=== PATIENT | female | born 2000 | race Caucasian/White ===

== ENCOUNTER 2024-11-13 15:50 | Outpatient (CLI) | payer SELFPAY ==
--- OUTSIDE RECORDS SUMMARY | 2024-11-14 10:19 | XMS_ITS | Clinical Summary ---
Author Organization [facility] General Surgery [place] [address] Address [address] [place] [address] Phone Care Team Providers Care Wood Room Hand Name Role Phone Tea Eldridge [facility] Property Technician Primary Ca re Provider Allergies No known active allergies Medications sertraline (ZOLOFT) 100 mg Oral Tablet Take 100 mg by mouth nightly. 3 Active omeprazole (PRILOSEC OTC) 20 mg Oral Tablet, Delayed Release (E.C.) Take 1 Tablet by mouth daily. 30 Tablet 3 Active Additional Information Patient taking differently:20 mg OralNIGHTLY, Reason: Advised by Physician, Reported on 04/09/2023 oxyCODONE (ROXICODONE) 5 mg Oral Tablet Take 1 Tablet by mouth every 4 hours as needed for Major Surgery/Trauma (G89.18). 15 Tablet 3 Active Active Problems Problem Noted Date Diagnosed Date RUQ pain 04/02/2023 Surgical History Surgery Date Site/Laterality Comments CHOLECYSTECTOMY, LAPAROSCOPIC 04/17/2023 Abdomen/N/A LAPAROSCOPIC CHOLECYSTECTOMY; Surgeon: Malina De Jesus MD; Location: [facility]; Service: General Medical History Medical History Date Comments Heartburn Family History Medical History Relation Name Comments Anesth Problems Neg Hx Social History Tobacco Use Types Packs/Day Years Used Date Smoking Tobacco: Every Day Smokeless Tobacco: Never Comments:Vape Comments No Sex and Gender Information Value Date Recorded Sex Assigned at Not on file Legal Sex Female 12:01 AM EDT Gender Identity Not on file Sexual Orientation Not on file Obstetrics History Last Filed Vital Signs Vital Sign Reading Time Taken Comments Blood Pressure 108/72 04/17/2023 9:30 AM EST Pulse 64 04/17/2023 9:30 AM EST Temperature 36.3 C (97.4 F) 04/17/2023 9:30 AM EST Respiratory Rate 20 04/17/2023 9:30 AM EST Oxygen Saturation 97% 04/17/2023 9:30 AM EST Inhaled Oxygen Concentration - - Weight 108.9 kg (240 lb) 04/17/2023 6:54 AM EST Height 172.7 cm (5' 8 ) 04/17/2023 6:54 AM EST Body Mass Index 36.49 04/17/2023 6:54 AM EST Plan of Treatment Health Maintenance Due Date Last Done Comments Annual Wellness Exam 12/19/2003 Meningococcal B Vaccine (1 o f 2 - Standard) 2016 Pneumococcal Vaccine 0-49 (1 of 2 - PCV) 12/19/2019 Cervical Cancer Screening 2021 DTaP/TDaP/Td (7 - Td or Tdap) 2021, 01/06/2005, 03/24/2002, Additional history exists Pap Smear 2021 COVID-19 Vaccine (3 2023-2 5 season) 2024 05/16/2021, 04/21/2021 Influenza Vaccine (Season Ended) 2025 02/22/20 Hepatitis B Vaccine Completed 12/20/2001, 03/05/2001, 2000 HPV Completed 04/04/2021, 05/22, 03/05/2012 Insurance [address] [address] Care Teams Wood Room Hand Relationship Specialty Start Date End Date Tea Eldridge Primary [facility] Property Technician [address] [facility] [place] [id number] PCP - General Obstetrics & Gynecology-Gynecology 04/17/23
--- OUTSIDE RECORDS SUMMARY | 2024-11-14 10:20 | XMS_ITS | Data Portability ---
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 Not Available acyclovir 5 % topical ointment APPLY TO THE AFFECTED AREA(S) BY TOPICAL ROUTE EVERY THREE (3) HOURS SIX (6) TIMES PER DAY 06/14 completed Not Available Not Available Not Available fluoxetin e 10 mg capsule Take 1 capsule every day by oral route for 30 days. 04/04 completed Not Available Not Available Not Available buspirone 7.5 mg tablet TAKE ONE (1) TABLET TWICE A DAY BY ORAL ROUTE FOR 30 DAYS. 09/05 completed patient reports made anxiety worse Not Available Not Available Not Available omeprazol e 20 mg capsule,d elayed release TAKE ONE (1) CAPSULE EVERY DAY BY ORAL ROUTE FOR 60 DAYS, FOR GERD. 02/21 completed Not Available Not Available Not Available hydroxyzi ne HCl 25 mg tablet TAKE ONE (1) TABLET EVERY DAY BY ORAL ROUTE NEEDED FOR 30 DAYS. 02/07 completed Not Available Not Available Not Available Pepcid 20 mg tablet Take 1 tablet twice a day by oral route as needed for 30 days. 04/05 completed Not Available Not Available Not Available sertralin e 50 mg tablet TAKE ONE (1) TABLET EVERY DAY BY ORAL ROUTE FOR 90 DAYS. 08/04 completed Not Available Not Available Not Available medroxypr ogesteron e 150 mg/mL intramusc ular suspensio n INJECT ONE (1) ML INTRAMUS CULARLY EVERY THREE (3) MONTHS 02/21 completed Not Available Not Available Not Available oxycodone 5 mg tablet TAKE ONE (1) TABLET BY MOUTH EVERY FOUR (4) HOURS NEEDED FOR MAJOR SURGERY/ TRAUMA (G89.18) . 05/07 completed Not Available Not Available Not Available azithromy juni 500 mg tablet TAKE ONE (1) TABLET EVERY DAY BY ORAL ROUTE DIRECTED FOR TWO (2) DAYS. 10/26 completed Not Available Not Available Not Available Graysonselle (28) 0.3 mg-30 mcg tablet Take 1 tablet every day by oral route for 28 days. 08/04 completed Not Available Not Available Not Available Xulane 150 mcg-35 mcg/24 hr transderm al patch Apply 1 patch every week by transder mal route as directed . 04/25 completed Not Available Not Available Not Available Vitals Date Recorded Body height Body mass index (BMI) Body weight Systolic And Diastolic Provider Name and Address Organization Details Last Updated DateTime 05/29/2024 173.99 cm 37.8 kg/m2 522544.71 g 120/76 mm[Hg] Susan Agee [place] - [facility] 05/29/2024 15:44:04 Date Recorded Body height Body mass index (BMI) Body weight Systolic And Diastolic Provider Name and Address Organization Details Last Updated DateTime 06/26/2024 173.99 cm 37.8 kg/m2 278380.28 g 106/64 mm[Hg] Susan Agee [place] - [facility] 06/26/2024 16:43:47 Date Recorded Body height Body mass index (BMI) Body weight Body temperature Heart rate Oxygen saturation Oxygen saturation in Arterial blood by Pulse oximetry Respiratory rate Systolic And Diastolic Provider Name and Address Organization Details Last Updated DateTime 173.99 cm 38.7 kg/m2 526787. 83 g 98 [degF] 92 /min 98 % 98 % 18 /min 110/74 mm[Hg] Ashley Wade [place] - [facility] 17:28:00 Date Recorded Body height Body mass index (BMI) Body weight Systolic And Diastolic Provider Name and Address Organization Details Last Updated DateTime 02/22/2024 173.99 cm 35.8 kg/m2 115318.58 g 104/70 mm[Hg] Susan Agee [facility] 02/22/2024 11:42:57 Date Recorded Body height Body mass index (BMI) Body weight Body temperature Heart rate Oxygen saturation Oxygen saturation in Arterial blood by Pulse oximetry Respiratory rate Systolic And Diastolic Provider Name and Address Organization Details Last Updated DateTime 4 173.99 cm 35.6 kg/m2 305929. 49 g 97.6 [degF] 73 /min 97 % 97 % 18 /min 118/78 mm[Hg] Ashley Wade [place] - [facility] 4 11:35:47 Social History Question Answer Notes LastModified by Organizat ion Details LastModified Time Tobacco Smoking Status Never Smoker Mara bruce [place] - [facility] 07/31/2018 13:21:11 Do You Have An Advance Directive? No Information not available 09/01/2019 How Many Years Have You Consumed Alcohol? 1 [email or web address] Information not available 04/04/2021 Are You Blind Or Do You Have Difficulty Seeing? No [email or web address] Information not available 09/14/2021 Is Blood Transfusion Acceptable In An Emergency? Yes [email or web address] Information not available 09/01/2019 What Is Your Level Of Caffeine Consumption? Moderate [email or web address] Information not available 09/01/2019 How Much Tobacco Do You Chew? None Information not available 09/01/2019 In The 14 Days Before Symptom Onset, Have You Had Close Contact With A Laboratory-confir med COVID-19 While That Case Was Ill? No [email or web address] Information not available 09/14/2021 In The 14 Days Before Symptom Onset, Have You Had Close Contact With A Person Who Is Under Investigation For COVID-19 While That Person Was Ill? No [email or web address] Information not available 09/14/2021 Have You Been To An Area Known To Be High Risk For COVID-19? No [email or web address] Information not available 09/14/2021 Are You Deaf Or Do You Have Serious Difficulty Hearing? No [email or web address] Information not available 09/01/2019 What Type Of Diet Are You Following? REGULAR [email or web address] Information not available 07/31/2018 Which Illicit Or Recreational Drugs Have You Used? Declines [email or web address] Information not available 09/01/2019 Have You Processed Blood Or Body Fluids From An Ebola Virus Disease Patient Without Appropriate PPE? No [email or web address] Information not available 09/14/2021 Do You Reside In Or Have You Traveled To An Area Where Ebola Virus Transmission Is Active? No [email or web address] Information not available 09/14/2021 What Is The Highest Grade Or Level Of School You Have Completed Or The Highest Degree You Have Received? [id number] [email or web address] Information not available 09/01/2019 How Many Days Of Moderate To Strenuous Exercise, Like A Brisk Walk, Did You Do In The Last 7 Days? 0 Information not available 09/01/2019 On Those Days That You Engage In Moderate To Strenuous Exercise, How Many Minutes, On Average, Do You Exercise? 0 [email or web address] Information not available 09/01/2019 Have There Been Any Changes To Your Family Or Social Situation? No [email or web address] Information no t available 09/14/2021 How Hard Is It For You To Pay For The Very Basics Like Food, Housing, Medical Care, And Heating? [id number] [email or web address] Information not available 09/14/2021 What Is The Fluoride Status Of Your Home? Fluoridated [email or web address] Information not available 09/14/2021 Live Alone Or With Others? With Others [email or web address] Information not available 09/14/2021 Last Menstrual Period? 03/10/2024 [email or web address] Information not available 05/29/2024 Last Menstrual Period 12/02/2018 [email or web address] Information not available 12/25/2018 What Was The Date Of Your Most Recent Tobacco Screening? 08/04/2024 Information not available 08/04/2024 How Many Children Do You Have? 0 [email or web address] Information not available 09/01/2019 Performs Monthly Self-breast Exam? Yes [email or web address] Information no t available 09/14/2021 Do You Use Protection During Sex? Always [email or web address] Information not available 09/01/2019 Do You Use Protection Against STDs? Always [email or web address] Information not available 04/28/2022 What Is Your Relationship Status? Single [email or web address] Information not available 09/01/2019 Seat Belts Used Routinely Yes [email or web address] Information not available 09/14/2021 Are You Sexually Active? Yes [email or web address] Information not available 09/01/2019 Do You Have Smoke And Carbon Monoxide Detectors In Your Home? Yes [email or web address] Information not available 04/04/2021 Are You Passively Exposed To Smoke? No [email or web address] Information no t available 04/04/2021 How Much Tobacco Do You Smoke? No [email or web address] Information not available 09/01/2019 General Stress Level Low [email or web address] Information not available 09/14/2021 Do You Use Sunscreen Routinely? Yes [email or web address] Information not available 09/01/2019 Has Tobacco Cessation Counseling Been Provided? Yes [email or web address] Information not available 02/22/2024 On What Date Was Tobacco Cessation Counseling Provided? 08/04/2024 Information not available 08/04/2024 Do You Have Difficulty Walking Or Climbing Stairs? No [email or web address] Information not available 09/14/2021 What Contraceptive Method Was Reported At Start Of This Visit? Male Condom [email or web address] Information not available 04/28/2022 What Contraceptive Method Was Reported At End Of This Visit? Male Condom [email or web address] Information not available 04/28/2022 Do You Want To Talk About Contraception Or Prevention During Your Visit Today? No - I Am Already Using Contraception [email or web address] Information not available 04/28/2022 How Many Years Have You Used E-cigarettes Or Vape? 2 [email or web address] Information not available 09/14/2021 Do You Have Any Future Plans To Get ? No, I Don't Want To Become [email or web address] Information not available 04/28/2022 Which Type Of Protection Is Used? Condoms [email or web address] Information not available 04/28/2022 Sex: Female Functional Status Question Answer Note LastModified by Organizat ion Details LastModified Time How many times per week do you consume alcohol? <1 time per week [email or web address] Information not available 04/28/2022 Do you or have you ever used smokeless tobacco? Never used smokeless tobacco [email or web address] Information not available 09/01/2019 Are you currently employed? Yes [email or web address] Information not available 09/01/2019 Do you have transportation difficulties? No [email or web address] Information not available 09/14/2021 Are you able to care for yourself? Yes [email or web address] Information not available 04/04/2021 Do you have difficulty dressing or bathing? No [email or web address] Information not available 09/14/2021 Do you or have you ever used e-cigarettes or vape? Current user of electronic cigarettes vape [email or web address] Information not available 03/02/2022 What is your exercise level? Occasional [email or web address] Information not available 09/01/2019 Do you use any illicit or recreational drugs? No [email or web address] Information not available 04/28/2022 Do you or have you ever used any other forms of tobacco or nicotine? Yes [email or web address] Information not available 09/14/2021 What is your level of alcohol consumption? Occasional [email or web address] Information not available 09/01/2019 What is your status? Not [email or web address] Information no t available 04/28/2022 Are you able to walk? YESWOREST [email or web address] Information not available 09/14/2021 Do you have difficulty doing errands alone? 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 [id number] [email or web address] Information not available 09/01/2019 Do you have difficulty concentrating, remembering or making decisions? No [email or web address] Information no t available 09/14/2021 Family History Relationship Description Onset Age of this Age Resolved Age Notes LastModified by Organization Details LastModified Time Father No current problems or disability [email or web address] Not available 07/26 09:41:44 Mother Disorder of thyroid gland [email or web address] Not available 2018 15:03:34 Mother Obesity [email or web address] Not available 07/09/2020 15:29:47 Mother Carcinoma of cervix [email or web address] Not available 2023 09:41:44 Brother Obesity [email or web address] Not availabl e 07/09/2020 15:29:47 Medical History Condition Response Anxiety Disorder Y Acid Reflux (GERD) Y Depression Y Gynecological History Statement/Question Response Abnormal Pap N Flow Moderate Date of LMP 05/21/2024 On BCP's at Conception? N Post Menopausal Bleeding N STIs/STDs N HPV Vaccine Y Duration of Flow (days) 5 Current Control Method Condoms Age at Menarche 12 Last Annual Exam/Provider 02/22/24 w/DT Sexually Active? Y Date of Last Cervical Culture 03/20/2024 Menses Monthly N Date of Last Pap Smear 04/28/2022 Sexual Problems? N LMP Definite Desired Control Method Condoms Hormone Replacement Therapy N Obstetrics History GPAL:G 0 P 0 0 0 0 Type Value Full Term 0 Living 0 Total 0 Immunizations Vaccine Type Date Status Note Provider Nam e and Address Organization Details Recorded Time MMR 4 completed Susan Agee [place], [place] - [facility] 05/29/2024 15:21:10 MMR 4 completed [place] [facility] 05/29/2024 15:21:10 Tdap 4 completed [place] [facility] 05/29/2024 15:21:10 Hep B, adult 4 completed [place] [facility] 05/29/2024 15:21:10 Hep B, adult 4 completed [place] [facility] 05/29/2024 15:21:10 HPV9 1 completed Parker Martinez [place] [facility] 04/04/2021 13:44:05 Influenza, split virus, quadrivalent, preservative 9 completed Not Available [facility] 06/14/2023 09:38:28 DTaP, unspecified formulation 1 completed Cristina Hill, [employer] [address], [place], [address], [place] [facility] 04/05/2020 16:25:13 DTaP, unspecified formulation 2 completed Cristina Hill, [employer] [address], [place], [address], [place] [facility] 04/05/2020 16:25:24 DTaP, unspecified formulation 2 completed Cristina Hill, [employer] [address], [place], [address], [place] [facility] 04/05/2020 16:25:36 DTaP, unspecified formulation 2 completed Cristina Hill, [employer] [address], [place], [address], [place] [facility] 04/05/2020 16:25:46 DTaP, unspecified formulation 5 completed Cristina Hill, [employer] [address], [place], [address], [place] [facility] 04/05/2020 16:25:57 Tdap 2 completed Cristina Hill, [employer] [address], [place], [address], [place] [facility] 04/05/2020 16:26:12 IPV 1 completed Cristina Khalil Manimich, [employer] [address], [place], [address], [place] [facility] 04/05/2020 16:26:27 IPV 2 completed Cristina HigginbothamGood Singletonmich, [employer] [address], [place], [address], [place] [facility] 04/05/2020 16:26:37 IPV 2 completed Cristina HigginbothamGood Singletonmich, [employer] [address], [place], [address], [place] [facility] 04/05/2020 16:26:47 IPV 5 completed Cristina Pieter Singletonmich, [employer] [address], [place], [address], [place] [facility] 04/05/2020 16:26:56 Hib-Hep B 1 completed Cristina Stapleton Remi Singletonmich, [employer] [address], [place], [address], [place] [facility] 04/05/2020 16:27:30 Hib-Hep B 2 completed Cristina Hill, [employer] [address], [place], [address], [place] [facility] 04/05/2020 16:27:41 Hib (PRP-OMP) 2 completed Cristina Pieter Singletonmich, [employer] [address], [place], [address], [place] [facility] 04/05/2020 16:27:57 Hep A, ped/adol, 2 dose 8 completed Susan bruce [place] [facility] 04/28/2022 15:05:01 Hep A, ped/adol, 2 dose 9 completed Cristina Hill, [employer] [address], [place], [address], [place] [facility] 04/05/2020 16:28:50 Hep B, adolescent or pediatric 1 completed Cristina Hill, [employer] [address], [place], [address], [place] [facility] 04/05/2020 16:29:08 MMR 2 completed Cristina Hill, [employer] [address], [place], [address], [place] [facility] 04/05/2020 16:29:22 MMR 5 completed Cristina Hill, [employer] [address], [place], [address], [place] [facility] 04/05/2020 16:29:31 varicella 2 completed Cristina Hill, [employer] [address], [place], [address], [place] [facility] 04/05/2020 16:29:45 varicella 2 completed Cristina Hill, [employer] [address], [place], [address], [place] [facility] 04/05/2020 16:29:54 meningococcal MCV4P 2 completed Cristina Hill, [employer] [address], [place], [address], [place] [facility] 04/05/2020 16:30:14 Meningococcal MCV4O 8 completed Susan [place] [facility] 04/28/2022 15:05:01 HPV, quadrivalent 2 completed Cristina Hill, [employer] [address], [place], [address], [place] [facility] 04/05/2020 16:30:49 HPV, quadrivalent 3 completed Cristina Hill, [employer] [address], [place], [address], [place] [facility] 04/05/2020 16:30:59 COVID-19, mRNA, LNP-S, PF, 30 mcg/0.3 mL dose 1 completed Susan [place] [facility] 04/28/2022 15:05:02 COVID-19, mRNA, LNP-S, PF, 30 mcg/0.3 mL dose 1 completed [facility] 04/28/2022 15:05:02 influenza, unspecified formulation 2 completed Not Available [facility] 06/14/2023 09:38:28 influenza, unspecified formulation 4 completed JUSTYNA Key [facility] 02/22/2024 11:39:31 Past Encounters Encounter ID Performer Location Encounter Start Date Encounter Closed Date Diagnosis/Indication Diagnosis SNOMED-CT Code Diagnosis ICD10 Code Diagnosis Note [id number] Lora Bess[address] [place] [address] 07/31/2018 12:50:00 07/31/2018 13:48:08 Abdominal pain 92853983 R10.9 Gastroesop hageal reflux disease 657995578 K21.9 Anxiety 63624837 F41.9 [id number] Cristina Hill[address] [address] 12/19/2018 11:13:54 12/19/2018 11:36:20 Dysuria 34151104 R30.0 Urinary tr act infectious disease 25952670 N39.0 Childhood obesity 277673 003 E66.8 [id number] Cristina Hill [address] [address] 12/25/2018 11:03:56 12/25/2018 11:59:02 Contraception education 967590382 Z30.09 Initiation of transdermal contraception done 1867293153 45068 Z30.018 Childhood obesity 613475 003 E66.8 Anxiety 63175469 F41.9 stable [id number] Keyanna Tavarez[address] [place] [address] 04/25/2019 14:45:45 04/25/2019 16:05:00 Contraception care management 372406076 Z30.9 Venereal d isease screening 019853994 Z11.3 [id number] Cristina Hill[address] [place] [address] 06/13/2019 11:24:39 06/13/2019 12:37:17 Exposure to Influenzavirus 694869837 Z20.828 Nasal congestion 2858413 0 R09.81 Childhood obesity 500968 003 E66.8 [id number] Keyanna Tavarez [address] [place] [address] 07/11/2019 09:27:36 07/11/2019 10:54:46 Anxiety 66929374 F41.9 Depressive disorder 3548 9007 F32.9 Body mass index 30+ - obesity 219027836 Z68.33 [id number] Keyanna Tavarez [address] [place] [address] 07/17/2019 09:27:16 07/17/2019 10:00:49 Contraception care management 250899414 Z30.9 [id number] CHERI Duarte [employer] [address] [place] [address] JUSTYNA Monge [address] 09/01/2019 14:17:36 09/01/2019 16:17:22 Bacterial vaginosis 971132884 N76.0 Screening for Chlamydia trachomatis 493570237 Z11.8 [id number] Keyanna Tavarez [address] [place] [address] 10/16/2019 09:28:46 10/16/2019 10:09:06 Uses depot contraception 374222146 Z30.42 [id number] Keyanna Tavarez [address] [place] [address] 12/16/2019 11:33:54 12/16/2019 12:58:49 Anxiety 59998411 F41.9 Depressive disorder 3548 9007 F32.9 Gastroesop hageal reflux disease without esophagitis 972226222 K21.9 [id number] Keyanna Tavarez [address] [place] [address] 01/20/2020 11:44:45 01/20/2020 13:11:06 Depot contraceptive status 878201961 Z92.0 [id number] Karly Christian [employer] [place] [employer] [address] [place] [id number] 01/23/2020 09:53:14 01/23/2020 10:58:02 Vaginal discharge 903818282 N89.8 Bacterial vaginosis 4197 93492 N76.0 Inflammati on of cervix 61886907 N72 [id number] Cristina Hill [address] [place] [address] 04/05/2020 14:36:10 04/05/2020 15:25:29 Uses depot contraception 578209850 Z30.42 Childhood obesity 825336 003 E66.8 [id number] Cristina Hill [address] [place] [place] [address] 07/09/2020 08:18:15 07/09/2020 08:47:18 Contraception care management 151384041 Z30.9 [id number] Cristina Hill [address] [place] [place] [address] 10/01/2020 09:49:56 10/01/2020 10:22:06 Dysuria 78892168 R30.0 Urinary tr act infectious disease 36477640 N39.0 Childhood obesity 013924 003 E66.8 Contracept ion care management 781687868 Z30.9 Uses depot contraception 388635936 Z30.42 [id number] Cristina Hill [address] [place] [place] [address] 12/27/2020 12:47:54 12/27/2020 13:49:30 Viral screening 640654041 Z11.52 COVID-19 546046452 U07.1 [id number] Cristina L. Khalil Saluga[address] [place] [address] 01/07/2021 11:42:59 01/07/2021 12:10:12 Uses depot contraception 033583040 Z30.42 Childhood obesity 623964 003 E66.8 [id number] Cristina Hill[address] [place] [address] 04/04/2021 12:56:58 04/04/2021 14:07:04 Contraception care management 074040551 Z30.9 Depression screening 171 530787 Z13.31 Adult heal th examination 731926946 Z00.00 General ex amination of patient 253828280 Z00.00 Exercises education, guidance, and counseling 923287856 Z71.82 Dietary ma nagement surveillance 213998523 Z71.3 Screening for Chlamydia trachomatis 219450120 Z11.8 Safety education 2395914 04 Z71.9 Childhood obesity 863604 003 E66.8 Macromastia 327610382 N6 2 Mild depression 91540019 3 F32.0 will monitor at this time [id number] Cristina Hill[address] [place] [address] 06/22/2021 13:01:52 06/22/2021 13:15:54 Contraception care management 206724456 Z30.9 Childhood obesity 432110 003 E66.8 Uses depot contraception 443432501 Z30.42 [id number] Cristina Hill [address] [address] 09/14/2021 10:19:52 09/14/2021 11:00:47 Uses depot contraception 008067863 Z30.42 Vaginal discharge 959265 006 N89.8 Childhood obesity 811210 003 E66.8 [id number] Cristina Hill [address] [place] [address] 09/29/2021 08:50:27 09/29/2021 09:11:35 Candidiasis of mouth 72262286 B37.0 [id number] Cristina Hill [address] [place] [address] 10/06/2021 13:56:07 10/06/2021 14:21:53 Lesion of oral mucosa 9568890295 012834 K13.70 Herpes labialis 1765995 B00.1 Childhood obesity 414408 003 E66.8 [id number] Karly Christian APRN [place] [employer] [address] [place] [address] [place] [address] 10/26/2021 10:48:20 10/26/2021 11:38:47 Vaginal odor 917075274 N89.8 Venereal d isease screening 965271752 Z11.3 [id number] Cristina Hill [address] [place] [address] 4 11/29/2021 14:54:16 11/29/2021 16:05:49 Contraception care management 624651065 Z30.9 [id number] CHERI Liriano [employer] [address] [place] [address] [place] [address] 03/02/2022 13:20:58 03/02/2022 14:05:16 Abnormal uterine bleeding 0779315329 9100 N93.9 [id number] CHERI Liriano [employer] [address] [place] [address] [place] [address] 04/28/2022 14:57:58 04/28/2022 15:41:26 Routine gynecologic examination done 8200947707 9101 Z01.419 Depression screening 171 720547 Z13.89 Hypertensi on screening 882197002 Z13.6 Screening for malignant neoplasm of cervix 623679738 Z12.4 Diet education 64963955 Z71.3 Encourage healthy eating/dec reased fats, sugars, fried foods Counseling 937731709 Z71 .82 Encouraged regular exercise 30-40min/d ay 4-5 days/wk Contracept ion care management 617639053 Z30.9 prefers condoms only Examinatio n of blood pressure 817254881 Z01.30 Body mass index 30+ - obesity 672549522 Z68.36 [id number] Kayla Gilliam [place] [address] [place] [address] 10/02/2022 10:49:32 10/02/2022 11:30:50 Body mass index 30+ - obesity 589789315 Z68.36 Obesity 039181693 E66.9 Vaginal discharge 918737 006 N89.8 Pruritus of vagina 91890 003 L29.3 Increased frequency of urination 381675548 R35.0 Leukocytes in urine 2757 00316 R82.[id number] [place] [place] [address] 12/07/2022 09:41:20 12/07/2022 10:49:10 Fatigue 84993900 R53.83 Mixed anxi ety and depressive disorder 172919508 F41.8 Start sertraline 50mg. Discussed potential side effects.GA D-7 score of 15. Will continue to monitorPHQ -9 score of 9. Will continue to monitor. [id number] Kayla Gilliam [address] [place] [place] [address] 01/11/2023 13:56:51 01/11/2023 15:01:38 Mixed anxiety and depressive disorder 782083803 F41.8 Start hydroxyzin e 25mg. Discussed potential side effects.GA D-7 score of 16. Will continue to monitorPHQ -9 score of 13. Will continue to monitor. [id number] CHERI Liriano [employer] [address] [place] [address] [place] Monge [address] 02/07/2023 13:25:01 02/07/2023 13:52:00 Venereal disease screening 352488074 Z11.3 [id number] Kayla Gilliam [address] [place] [address] 02/08/2023 14:45:21 02/08/2023 15:16:24 Mixed anxiety and depressive disorder 843567560 F41.8 Increase sertraline to 100mg/dayG AD-7 score of 7. Will continue to monitorPHQ -9 score of 5. Will continue to monitor. [id number] Kayla Gilliam [address] [place] [address] 03/02/2023 11:02:43 03/02/2023 11:30:16 Gallstone 766522672 K80.[address] from [facility] ED visit on 02/26/23Dis cussed reducing dietary intake of fried/grea sy foods Toothache 47582500 K08.8 9 Advised the use or Tylenol or ibuprofen as needed for discomfort .Advised patient to f/u with dentist at earliest convenienc e. Patient verbalized understand ing. [id number] Kayla Gilliam [address] [place] [address] 03/15/2023 14:57:25 03/15/2023 16:06:35 Mixed anxiety and depressive disorder 786115924 F41.8 NEL-7 score of 21.PHQ-9 score of 15. [id number] Kayla Gilliam [address] [address] 05/07/2023 13:17:09 05/07/2023 13:44:33 Mixed anxiety and depressive disorder 933623544 F41.8 NEL-7 score of 6PHQ-9 score of 4 Herpes labialis 8583982 B00.1 [id number] Kayla Gilliam [address] [place] [address] 06/14/2023 09:37:10 06/14/2023 10:24:23 Contraception care management 065133913 Z30.9 [id number] Kayla Gilliam [address] [place] [address] 07/27/2023 09:41:31 07/27/2023 10:09:12 Body mass index 30+ - obesity 270325224 Z68.36 Obesity 826469962 E66.9 Herpes labialis 5934908 B00.1 [id number] Kayla Gilliam [address] [place] [address] 08/17/2023 14:38:53 08/17/2023 15:27:25 Mixed anxiety and depressive disorder 482798798 F41.8 NEL-7 score of 5PHQ-9 score of 4 [id number] Kayla Gilliam [address] [place] [address] 09/06/2023 09:49:19 09/06/2023 10:57:40 Initiation of depot contraception done 9823450955 02940 Z30.013 Contracept ion care management 551187577 Z30.9 [id number] Kayla Gilliam [address] [place] [address] 11/29/2023 14:47:04 11/29/2023 15:38:00 Endocrine/metabolic screening 705364946 Z13.228 Uses depot contraception 894408111 Z30.42 [id number] Kayla Gilliam [address] 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 Dysuria 27058706 R30.0 Advised to increase water intake and decrease caffeine intake [id number] CHERI Liriano [employer] [address] [place] [address] [place] [address] 02/22/2024 11:31:33 02/22/2024 12:08:05 Routine gynecologic examination done 7320879374 9101 Z01.419 Depression screening 171 478398 Z13.31 PHQ-9 completed today. Diet education 84345179 Z71.3 Encourage healthy eating/dec reased fats, sugars, fried foods Counseling 873184541 Z71 .82 Exercise counseljannie diaz. Patient encouraged to exercise 30 minutes 5 days a week. Examinatio n of blood pressure 253049072 Z01.30 Hypertensi on screening 554795055 Z13.6 Venereal d isease screening 628964121 Z11.3 Body mass index 30+ - obesity 542532293 Z68.35 Obesity 260141636 E66.9 Mixed anxi ety and depressive disorder 688353877 F41.8 Contracept ion care management 165960852 Z30.9 prefers condoms only [id number] Kayla Gilliam [place] [address] [place] [address] 03/20/2024 11:24:47 03/20/2024 12:55:40 Mixed anxiety and depressive disorder 231835913 F41.8 Venereal d isease screening 679890512 Z11.3 Will call with lab results when available. Irregular periods 376432 07 N92.6 Vaginal discharge 810534 006 N89.8 Leukocytes in urine 2757 76115 R82.79 [id number] Karly Christian APRN [place] [employer] [address] [place] [address] [place] [address] 05/29/2024 15:18:27 05/29/2024 16:16:32 Irregular intermenstrual bleeding 64666688 N92.1 Body mass index 30+ - obesity 893765275 Z68.37 Obesity 818171756 E66.9 [id number] CHERI Liriano [employer] [address] [place] [address] [place] [address] 06/26/2024 15:56:25 06/26/2024 16:59:04 Irregular intermenstrual bleeding 15913191 N92.1 Folliculitis 84176051 L7 3.9 [id number] Kayla Gilliam [place] [address] [place] [address] 08/04/2024 17:23:00 08/04/2024 17:47:04 Excessive thirst 76183950 R63.1 Body mass index 30+ - obesity 576422969 Z68.38 Education was provided on healthy nutrition, including a diet rich in fruits and vegetables , minimizing simple carbohydra patel, salt, and saturated fats. Encouraged regular cardiovasc ular exercise such as walking at least 30 minutes daily, 5 times per week. Obesity 955681118 E66.9 Endocrine/ metabolic screening 080163646 Z13.228 Health Concerns Section Related Observation LastModified by Organization Detai ls LastModified Time None Recorded Concern Status LastModified by Organization Details LastModified Time None Recorded Advance Directives Directive N: Payers Insurance Date Sequence Insurance Name Policy Number Policy Arzate Covered Member ID Arzate Member ID Guarantor Name 06/26/2024 1 *SELF PAY* Mio Garcia 06/09/2024 1 [facility] [id number] Candido Garcia [id number] Estefany Garcia Notes Date Note Type Note Provider Name and Address Organization Details Recorded Time 02/22/2024 text/html Annual - MOBReported bypatient.History:L ast annual exam: 04/28/22; no gynecologic complaints Current Contraception: control not practiced;New sexual partner Preventive measures:Encourage self breast examination; Encourage regular exercise; Encourage no tobacco use; Encourage regular mammograms starting age 40Notes:Patience rto for AWE. She is doing well and denies epic application coordinator concerns. Karly Gino, BLIND SLAT STAPLING MACHINE OPERATOR [address], [place], [address], [place] - [facility] 02/22/2024 13:05:41 03/20/2024 text/html Patient presents for depression and anxiety f/u. Patient reports compliance with medication regimen. Patient reports depression and anxiety symptoms are well controlled at this time.Patient also reports she was diagnosed with chlamydia approx. 1 month ago. Patient reports she completed doxycycline as prescribed. Requesting to be re-tested for chlamydia today. Patient does endorse intermittent vaginal discharge.Patient also reports irregular menstrual periods since discontinuing Depo-Provera injections. Patient does report spotting x 1 week in the past month.Denies SI/HI, chest pain, SOA, fever, edema, dysuria, and n/v/d. Kayla Gilliam, BL[employer] STAPLING MACHINE OPERATOR [address], [place], [address], [place] - [facility] 03/20/2024 12:36:33 05/29/2024 text/html Patience present s today for irregular spotting since stopping Depo.Estefany has used depo and bcps intermittently. I explained how this can affect cycle regularity. UPT is negative.She has experienced 15# weight gain over the past 2 months. She feels it could be r/t starting her new job, and being in a very good, comfortable relationship. Discussed ways to modify nutrition to encourage weight loss.She agrees to short-term hormonal contraception to help regulate bleeding pattern. Karly Gino, BLIND SL[employer] STAPLING MACHINE OPERATOR [address], [place], [address], [place] - [facility] 05/29/2024 21:42:18 06/26/2024 text/html Patience present s today to discuss results of ultrasound.Estefany is also complaining of 2 new bumps vaginally and requesting them to be checked.US reviewed-unremarkab le. Images read and interpreted by radiologist. She is reassured. Karlybello Christian, BLIND SL[employer] STAPLING MACHINE OPERATOR [address], [place], [address], [place] - [facility] 06/26/2024 22:52:53 08/04/2024 text/html Patient presents to discuss weight loss. Patient reports she has decreased calorie intake with no benefit. Does endorse polydipsia. Denies chest pain, SOA, fever, polydipsia, dizziness, syncope, and n/v/d. Kayla Gilliam, BLIND SLAT STAPLING MACHINE OPERATOR [address], [place], [address], [place] - [facility] 08/04/2024 17:49:23 OBGyn Episode No OBEpisode recorded.
== END 2024-11-13 23:59 | disposition home or self-care (01) ==
LOC: LAB.DROPOF 11-14 10:12
PROVIDERS: PCP Nurse Practitioner Family; Visit Provider Nurse Practitioner Family
DX: R30.0 Dysuria (principal)
CPT/HCPCS: 87086

== ENCOUNTER 2024-12-23 09:45 | Outpatient (CLI) | payer SELFPAY ==
--- NOTE | 2024-12-23 09:47 | XR_ITS ---
FINAL REPORT CLINICAL HISTORY: left ankle pain COMPARISON: None FINDINGS: LEFT ANKLE Three views demonstrate no acute fracture or dislocation. There is a moderate plantar spur. The ankle mortise is intact. The visualized joint spaces are normally aligned. The soft tissues are unremarkable. IMPRESSION: No acute bony abnormality. Reviewed, Interpreted and Dictated by Michael Lima MD Transcribed by Phyllis Elizabeth Authenticated and [facility]
--- OUTSIDE RECORDS SUMMARY | 2024-12-23 09:47 | XMS_ITS | Clinical Summary ---
Author Organization [facility] General Surgery [place] [address] [address] [place] [address] Phone Care Team Providers Care Cream Hauler Name Role Phone Tea Eldridge [facility] Rn Teacher Primary Ca re Provider Allergies No known [...] CHOLECYSTECTOMY; Surgeon: Malina De Jesus MD; Location: [facility] MAIN OR; Service: General Medical History Medical [...] Last Done Comments Annual Wellness Exam 12/19/2003 Pneumococcal Vaccine 0-49 (1 of 2 - PCV) 12/19/2019 Cervical Cancer Screening 2021 DTaP/TDaP/Td (7 - Td or Tdap) 2021 12/19/2011, 01/06/2005, 03/24/2002, Additional history exists Pap Smear 2021 COVID-19 Vaccine ( season) 2024 05/16/2021, 04/21/2021 Influenza Vaccine (#1) 2025 02/21/2019 Hepatitis B Vaccine Completed 12/20/2001, 03/05/2001, 2000 HPV Completed 04/04/2021, 05/22, 03/05/2012 Meningococcal B Vaccine Aged Out No l onger eligible based on patient's age to complete this topic Insurance [address] [address] Care Teams Cream Hauler Relationship Specialty Start Date End Date Tea Eldridge [facility] Rn Teacher [address] [facility] [place] [address] PCP - General Obstetrics & Gynecology-Gynecology 04/17/23
== END 2024-12-23 23:59 | disposition home or self-care (01) ==
LOC: RAD 09:45
PROVIDERS: PCP Nurse Practitioner Family; Visit Provider Physician Assistant
DX: M25.572 Pain in left ankle and joints of left foot (principal); M77.32 Calcaneal spur, left foot
CPT/HCPCS: 73610

== ENCOUNTER 2025-02-05 08:18 | Outpatient (CLI) | payer SELFPAY ==
--- OUTSIDE RECORDS SUMMARY | 2025-02-06 13:15 | XMS_ITS | Clinical Summary ---
Author Organization [facility] General Surgery [place] [address] [address] [place] [address] Phone Care Team Providers Care Associate Director Regulatory Affairs Name Role Phone Tea Eldridge [facility] Hardboard Factory Worker Primary Ca re Provider Allergies No known [...] CHOLECYSTECTOMY; Surgeon: Malina De Jesus MD; Location: [facility] MAIN OR; Service: General Medical History Medical [...] Pap Smear 2021 COVID-19 Vaccine ( season) 2025 05/16/2021, 04/21/2021 Influenza Vaccine (#1) 2025 02/21/2019 Hepatitis B Vaccine Completed 12/20/2001, 03/05/2001, 2000 HPV Completed 04/04/2021, 05/22, 03/05/2012 Meningococcal B Vaccine Aged Out No l onger eligible based on patient's age to complete this topic Insurance [address] [address] Care Teams Associate Director Regulatory Affairs Relationship Specialty Start Date End Date Tea Eldridge [facility] Hardboard Factory Worker [address] [facility] [place] [address] PCP - General Obstetrics & Gynecology-Gynecology 04/17/23
== END 2025-02-05 23:59 | disposition home or self-care (01) ==
LOC: LAB.DROPOF 02-06 13:13
PROVIDERS: PCP Nurse Practitioner; Visit Provider Nurse Practitioner
DX: R30.0 Dysuria (principal)
CPT/HCPCS: 87086

== ENCOUNTER 2025-02-12 13:34 | Outpatient (CLI) | payer SELFPAY ==
[2025-02-12 20:11] LABS: Microscopic, Urine URINE MICROSCOPIC (MICROSCOPIC)
[2025-02-12 20:53] LABS: Bilirubin,Urine Negative (Negative); Color,Urine YELLOW (Yellow); Glucose,Urine (UA) Negative (Negative); Ketones,Urine Negative (Negative); Leukocyte Esterase,Urine Negative (Negative); PH,Urine 7.0 (5.0-8.5); Protein,Urine Negative (Negative); Specific Gravity, Urine 1.015 (1.005-1.030); Urobilinogen,Urine 0.2 EU/dl (0.2)
[2025-02-12 21:48] LABS: Squamous Epithelial Cell,Urine 20-50 #/hpf (0-5)
[2025-02-12 21:49] LABS: Bacteria,Urine 3+ /lpf; Mucus,Urine 2+ /lpf
--- OUTSIDE RECORDS SUMMARY | 2025-02-16 09:09 | XMS_ITS | Clinical Summary ---
Author Organization [facility] General Surgery [place] [address] [address] [place] [address] Phone Care Team Providers Care Veterinary Nurse Name Role Phone Tea Eldridge [facility] Administrative Intern Primary Ca re Provider Allergies No known [...] Malina De Jesus MD; Location: [facility] MAIN OR; Service: General Medical History Medical [...] on file Sexual Orientation Not on file Last Filed Vital Signs Vital Sign Reading [...] to complete this topic Insurance [address] [address] Care Teams Veterinary Nurse Relationship Specialty Start Date End Date Tea Eldridge [facility] Administrative Intern [address] [facility] [place] [address] PCP - General Obstetrics & Gynecology-Gynecology 04/17/23
== END 2025-02-12 23:59 ==
LOC: LAB.DROPOF 02-16 09:01
PROVIDERS: PCP Nurse Practitioner; Visit Provider Nurse Practitioner
DX: N76.0 Acute vaginitis (principal); R30.0 Dysuria
CPT/HCPCS: 81001; 87086; 87491; 87591; 87661

== ENCOUNTER 2025-02-24 08:50 | Outpatient (CLI) | payer SELFPAY ==
[2025-02-24 17:38] LABS: Hematocrit 38.2 % (37.0-47.0); Hemoglobin 12.3 g/dL (12.2-16.2); Immature Granulocytes % 0.1 %; Mean Corpuscular HGB Conc 32.2 g/dL (31.8-35.4); Mean Corpuscular Hemoglobin 28.3 pg (27.0-31.2); Mean Corpuscular Volume 88.0 fl (81-99); Nucleated Red Blood Cells % 0 %; Platelet Count 345 K/mm3 (142-424); Red Blood Count 4.34 M/mm3 (4.20-5.40); Red Cell Distribution Width-SD 42.5 fL; White Blood Count 7.1 K/mm3 (4.8-10.8)
[2025-02-24 18:13] LABS: Alanine Aminotransferase 18 U/L (12-78); Albumin Level 4.0 g/dl (3.5-5.0); Albumin/Globulin Ratio 1.4 (1.1-1.8); Alkaline Phosphatase 108 U/L (38-126); Anion Gap 14.0 mEq/L (5-15); Aspartate Amino Transferase 22 U/L (14-36); Bilirubin,Total 0.5 mg/dl (0.2-1.3); Blood Urea Nitrogen 7 mg/dl (7-17); Calcium 9.1 mg/dl (8.4-10.2); Carbon Dioxide 26 mmol/L (22.0-30.0); Chloride 102 mmol/L (98-107); Cholesterol 136 mg/dl (140-200); Creatinine,Serum 0.70 mg/dl (0.52-1.04); Estimated Glomerular Filt Rate 103 ml/min (>60); GFR (African American) 124 ML/MIN (>60); Globulin 2.9 g/dL (1.3-3.2); Glucose 73 mg/dl (74-100); HDL Cholesterol 38 mg/dl (40-60); Potassium 4.0 mmoL/L (3.5-5.1); Sodium 138 mmol/L (136-145); Total Protein,Serum 6.9 g/dl (6.3-8.2); Triglycerides 85 mg/dl (30-150)
[2025-02-24 18:43] LABS: Thyroid Stimulating Hormone 1.60 uIU/mL (0.465-4.68)
[2025-02-24 18:50] LABS: Hepatitis C Ab Qual. W/ RFX NEGATIVE (Negative)
[2025-02-24 19:02] LABS: Vitamin B12 326 pg/mL (239-931)
--- OUTSIDE RECORDS SUMMARY | 2025-02-24 22:54 | XMS_ITS | Clinical Summary ---
Author Organization [facility] General Surgery [place] [address] [address] [place] [address] Phone Care Team Providers Care Crystal Evaluator Name Role Phone Tea Eldridge [facility] Movie Operator Primary Ca re Provider Allergies No known [...] CHOLECYSTECTOMY; Surgeon: Malina De Jesus MD; Location: [facility] MAIN OR; Service: General Medical History [...] to complete this topic Insurance [address] [address] Care Teams Crystal Evaluator Relationship Specialty Start Date End Date Tea Eldridge Primary [facility] Movie Operator [address] [facility] [place] [address] PCP - General Obstetrics & Gynecology-Gynecology 04/17/23
[2025-02-26 09:12] LABS: Hepatitis B Surface Antigen Negative (Negative)
== END 2025-02-24 23:59 | disposition home or self-care (01) ==
LOC: LAB.DROPOF 22:53
PROVIDERS: PCP Nurse Practitioner; Visit Provider Nurse Practitioner
DX: F41.1 Generalized anxiety disorder (principal); F33.1 Major depressive disorder, recurrent, moderate; Z11.59 Encounter for screening for other viral diseases; E66.9 Obesity, unspecified; Z79.899 Other long term (current) drug therapy
CPT/HCPCS: 80053; 80061; 82607; 84443; 85025; 86803; 87340; 87389